=== PATIENT | male | born 1945 | race Caucasian/White ===

== ENCOUNTER 2018-05-26 07:30 | Day surgery (SDC) | payer OTHER ==
[~2018-05-26] VITALS: Ht 175.3 cm; Wt 129.3 kg
[~2018-05-26 07:30] MED LIST: ACTEMRA162 MG/0.9 IM; CYCLOBENZAPR10 MG PO; FOLIC ACI1 PO; FOLIC ACID1 MG PO; LYRICA225 MG PO; METFORMIN500 M2 PO; MILLIPRED5 MG; RHEUMATREX2.5 M1 PO; SULFASALAZIN500 M1 PO; TAMSULOSIN0.4 MG PO; TREXALL5 MG; VITAMIN B 12 IM; WARFARIN5 MG
[2018-05-26 09:11] VITALS: BP 105/62
== END 2018-05-26 09:18 | disposition home or self-care (01) | DRG 379 ==
LOC: ENDO 07:30 → ORM 13:30
PROVIDERS: ATTEND Internal Medicine Gastroenterology
PROC: 0DB98ZX Excision of Duodenum, Via Natural or Artificial Opening Endoscopic, Diagnostic (ICD-10-PCS; principal; 2018-05-26)
PROC: 0DB78ZX Excision of Stomach, Pylorus, Via Natural or Artificial Opening Endoscopic, Diagnostic (ICD-10-PCS; 2018-05-26)
PROC: 0DB48ZX Excision of Esophagogastric Junction, Via Natural or Artificial Opening Endoscopic, Diagnostic (ICD-10-PCS; 2018-05-26)
PROC: 0DBK8ZX Excision of Ascending Colon, Via Natural or Artificial Opening Endoscopic, Diagnostic (ICD-10-PCS; 2018-05-26)
PROC: 0DBE8ZX Excision of Large Intestine, Via Natural or Artificial Opening Endoscopic, Diagnostic (ICD-10-PCS; 2018-05-26)
DX: K29.51 Unspecified chronic gastritis with bleeding (principal); K29.81 Duodenitis with bleeding; K21.9 Gastro-esophageal reflux disease without esophagitis; B96.81 Helicobacter pylori [H. pylori] as the cause of diseases classified elsewhere; K57.31 Diverticulosis of large intestine without perforation or abscess with bleeding; D12.2 Benign neoplasm of ascending colon; K64.8 Other hemorrhoids; K64.4 Residual hemorrhoidal skin tags; I10 Essential (primary) hypertension; E11.9 Type 2 diabetes mellitus without complications; M06.9 Rheumatoid arthritis, unspecified; Z87.11 Personal history of peptic ulcer disease; Z80.0 Family history of malignant neoplasm of digestive organs; Z85.46 Personal history of malignant neoplasm of prostate; Z92.21 Personal history of antineoplastic chemotherapy; Z92.3 Personal history of irradiation

== ENCOUNTER 2020-06-03 12:11 | Emergency (ER) | payer OTHER, MEDICARE ==
[~2020-06-03] VITALS: Ht 175.3 cm; Wt 122.7 kg
[2020-06-03 12:48] LABS: HEMATOCRIT 42.2 % (39.0-50.0); HEMOGLOBIN 13.5 g/dl (14.0-18.0); IMMATURE GRANULOCYTES 0.5 % (0.0-5.0); MEAN CELL VOLUME 87.7 fL CALC (80.0-100.0); MEAN CORPUSCULAR HGB 28.1 pG CALC (26.0-32.0); NEUT# 2.34 thou/uL (1.82-7.42); RED BLOOD COUNT 4.81 mill/uL (4.70-6.10); RED CELL DISTRI WIDTH 15.2 % (11.5-15.5)
[2020-06-03 13:09] LABS: INTERNATIONAL NORMALIZED RATIO 1.1 RATIO (0.7-1.3); PROTHROMBIN TIME 10.5 SECONDS (9.0-12.5)
[2020-06-03 13:15] LABS: ALKALINE PHOSPHATASE 43 u/l (38-126); ANION GAP 12 (6-22 (CALC)); BILIRUBIN, TOTAL 0.8 mg/dL (0.0-1.4); BUN 17 mg/dL (8-23); BUN/CREATININE RATIO 22 (12-20 (CALC)); CARBON DIOXIDE 27 mmol/l (22-30); CHLORIDE 98 mmol/l (95-108); CREATININE 0.8 mg/dL (0.7-1.3); GFR > 60 ML/MIN (>=60 (CALC)); GFR FOR AFR.AMER. > 60 ML/MIN (>=60 (CALC)); POTASSIUM 4.5 mmol/l (3.5-5.1); SGOT/AST 67 u/l (19-48); SODIUM 133 mmol/l (137-146); TOTAL PROTEIN 7.2 g/dL (6.3-8.2)
[2020-06-03 13:26] LABS: MYOGLOBIN 157 ng/mL (0 - 121)
[2020-06-03 15:00] VITALS: BP 144/68
== END 2020-06-03 15:00 | disposition short-term general hospital (02) | DRG 177 ==
LOC: ED 12:11
PROVIDERS: Family Medicine
DX: U07.1 COVID-19 (principal); J12.89 Other viral pneumonia; J96.00 Acute respiratory failure, unspecified whether with hypoxia or hypercapnia
CPT/HCPCS: J0131